=== PATIENT | female | born 1975 | race Two or more races ===

== ENCOUNTER 2018-10-31 08:09 | Outpatient (CLI) | payer OTHER ==
[~2018-10-31 08:09] MED LIST: CIPRO500 MG PO; INTEGRA CAPSUL1 EACH PO; LEVSIN/SL0.125 MG PO; NORETHINDRONE AC5 M1 PO; OXYC1TAB9 PO
== END 2018-10-31 08:20 | disposition home or self-care (01) ==
LOC: SONOGRAMA 08:09
DX: R19.09 Other intra-abdominal and pelvic swelling, mass and lump (principal)

== ENCOUNTER 2019-03-04 05:24 | Day surgery (SDC) | payer OTHER | END 2019-03-04 14:50 | disposition home or self-care (01) | LOC: CIR.AMB 05:24 | DX: N80.6 Endometriosis in cutaneous scar (principal) ==